=== PATIENT | male | born 1995 | race Caucasian/White ===

== ENCOUNTER 2025-05-05 06:23 | Outpatient (REF) | payer OTHER, SELFPAY ==
--- NOTE | ~2025-05-05 | US_ITS ---
EXAMINATION: US SCROTUM CLINICAL INFORMATION: Left testicular pain. COMPARISON: None available. TECHNIQUE: A sonogram of the scrotum was performed assessing florez-scale appearance and color Doppler flow. Spectral Doppler analysis of the arterial and venous flow were performed in the testes bilaterally. FINDINGS: RIGHT: Right testicle measures 4.5 x 2.4 x 2.9 cm, volume 16.4 mL. No focal testicular parenchymal lesions are visualized. Spectral Doppler analysis of the arterial and venous flow is normal in the right testis. Right epididymal head is normal in size. No right hydrocele or varicocele is seen. Right epididymal Doppler flow is normal. LEFT: Left testicle measures 4.1 x 2.2 x 3.2 cm, volume 15.1 mL. No focal testicular parenchymal lesions are visualized. Spectral Doppler analysis of the arterial and venous flow is normal in the left testis. Left epididymal head is normal in size. No left hydrocele or varicocele is seen. Left epididymal Doppler flow is normal. US/US scrotum IMPRESSION: Normal scrotal ultrasound. Electronically signed by: Valeriano Macario MD 05/05/2025 11:07 AM EDT
--- OUTSIDE RECORDS SUMMARY | 2025-05-05 06:26 | XMS_ITS | Clinical Summary ---
Author Organization [facility] Address [address] [place] [phone] Phone Care Team Providers Care Field Support Representative Name Role Phone Pcp, Unknown Primary Care Provider Unavailabl e Allergies Active Allergy Reactions Criticality Noted Date Comments Amoxicillin-Pot Clavulanate Hives 04/27/20 17 Medications No known medications Social History Tobacco Use Types Packs/Day Years Used Date Smoking Tobacco: Never Smokeless Tobacco: Never Tobacco Cessation:Counseling Given: Not Answered Education Answer Date Recorded Are you interested in more education? Not on porfirio e 12/11/2023 Are you concerned about learning? Not on file 12/11/2023 No 12/11/2023 No 12/11/2023 Digital Access Answer Date Recorded No 12/11/2023 No 12/11/2023 Reliable internet access at home? Not on file 12/11/2023 Device with a working camera? Not on file Sex and Gender Information Value Date Recorded Sex Assigned at Not on file Legal Sex Male 9:21 AM EDT Gender Identity Not on file Sexual Orientation Not on file Last Filed Vital Signs Vital Sign Reading Time Taken Comments Blood Pressure 122/80 12/11/2023 9:29 AM EDT Pulse 102 12/11/2023 10:29 AM EDT Temperature 37.6 C (99.7 F) 12/11/2023 9:29 AM EDT Respiratory Rate 18 12/11/2023 9:29 AM EDT Oxygen Saturation 98% 12/11/2023 10:29 AM EDT Inhaled Oxygen Concentration - - Weight 77.1 kg (170 lb) 12/11/2023 9:29 AM EDT p er pt Height - - Body Mass Index - - Plan of Treatment Health Maintenance Due Date Last Done Comments DEPRESSION SCREENING 2009 HEPATITIS C SCREENING 2015 HIV ONE-TIME SCREENING (18-6 5 YEARS) 2015 INFLUENZA VACCINE (#1) 2025 COVID-19 VACCINE (2024-2 6 season) 2025 Adult Td,Tdap Booster 01/07/2033 01/07/2023 SMOKING STATUS SCREENING (On ce After 26 Yrs) Completed 12/11/2023 HEPATITIS A VACCINES Aged Out No long er eligible based on patient's age to complete this topic HIB VACCINES Aged Out No longer eligi ble based on patient's age to complete this topic MENINGOCOCCAL VACCINES (ACWY) Aged Out No longer eligible based on patient's age to complete this topic MENINGOCOCCAL VACCINES (B) Aged Out N o longer eligible based on patient's age to complete this topic PNEUMOCOCCAL VACCINES (0-49 years) Aged Out No longer eligible based on patient's age to complete this topic Medical Devices Not on file Insurance [employer] EZEKIEL STEELE Care Teams Field Support Representative Relationship Specialty Start Date End Date Pcp, Unknown PCP - General 12/11/23 Additional Source Comments The information contained in this document represents components of the legal health record. It is not the complete legal health record.[facility]
== END 2025-05-05 06:24 | disposition home or self-care (01) ==
LOC: HO.UMASIMG 06:23
PROVIDERS: Visit Provider Physician Assistant Medical
DX: N50.812 Left testicular pain (principal); R14.1 Gas pain
CPT/HCPCS: 76870

== ENCOUNTER → 2025-05-05 10:12 | Outpatient (BNV) | payer OTHER, SELFPAY | PROVIDERS: Visit Provider Radiology Diagnostic Radiology | DX: N50.812 Left testicular pain (principal) | CPT/HCPCS: 76870 ==